=== PATIENT | female | born 1990 | race Caucasian/White ===

== ENCOUNTER 2016-07-21 20:33 | Emergency (ER) | payer SELFPAY ==
[~2016-07-21] VITALS: Ht 162.6 cm; Wt 84.7 kg
[~2016-07-21 20:33] MED LIST: IBUP-1050 PO
[2016-07-21 20:36] VITALS: TEMP 37.2; Ht 162.6 cm; Wt 84.7 kg
--- NOTE | 2016-07-21 21:18 | DIAGNOSTIC IMAGING REPORT ---
RIGHT KNEE 3 VIEWS CLINICAL HISTORY: R knee pain Right COMPARISON: None. DISCUSSION: The bones and joint spaces appear intact. There is no evidence of fracture, dislocation or bony disease. There is no evidence for soft tissue swelling. IMPRESSION: Negative study. Electronically signed by: William Oliveira M.D. 07/21/2016 9:17 PM Dictated Date/Time: 07/21/2016 9:17 PM
[2016-07-21] MEDS ORDERED: TRAM-10 PO (21:38)
[2016-07-21] MEDS ORDERED: TRAMADOL HCL 50 MG HOME PACK PO ONE (21:45)
[2016-07-21] MEDS ORDERED: KETOROLAC TROMETHAMINE 10 MG TAB PO STA (21:49)
[2016-07-21] MEDS ORDERED: EMPTY 8 DRAM VIAL ONE (21:52)
[2016-07-21] MEDS ORDERED: KETO10TA PO (21:54)
[2016-07-21 22:02] VITALS: BP 146/84; PULSE 97; O2SAT 100
--- NOTE | 2016-07-22 02:50 | EMERGENCY ROOM VISIT NOTE ---
ED Visit Note First contact with patient: 20:44 Chief Complaint: Right knee pain. History of Present Illness: Ms. Smith is a 25-year-old white female who ambulates into the ED complaining of right anterior knee pain. Patient reports she's has no significant injuries or previous surgeries to the right knee. She reports she noted approximately a week ago she was having some mild achiness in the knee and felt it was related to working 2 jobs. Today she reports she bent down and flexed her knee and developed acute onset of severe pain over the anterior aspect of the knee. She currently places her discomfort over the anterior superior tibia. She describes her pain as sharp and achy. She rates her discomfort 8/10. Her pain worsens with palpation, the last few degrees of extension and flexion beyond 30 . She has not identified any alleviating factors related to the pain. She reports she's been using ibuprofen without relief of her discomfort. She denies any associated symptoms including back pain, fevers, chills, sweats, skin eruptions, skin color changes, decreased appetite, nausea, vomiting recent trauma, previous surgeries, left lower extremity weakness/numbness/tingling. Review of Systems: As noted above in history of present illness. 8 body systems were reviewed and found to be negative as noted above. Past Medical History: Herniated cervical disk. Current Medications: Ibuprofen. Home Meds and Scripts Medications Dose Route/Sig Max Daily Dose Days Date Category Toradol (Ketorolac Tromethamine) 10 Mg Tab 10 Mg PO Q6H PRN 07/21/16 Rx Advil (Ibuprofen) 200 Mg Tab 200-600 Mg PO Q4H PRN 04/15/16 Reported Allergies to Medications: Tramadol. Social History: Patient is currently employed; she lives with her boyfriend feels safe in her home environment; she admits to tobacco use and denies alcohol use. Physical Examination: Vital Signs: Date Time Temp Pulse Resp B/P Pulse Ox O2 Delivery O2 Flow Rate FiO2 07/21/16 22:02 97 20 146/84 100 07/21/16 20:36 37.2 126 20 146/84 100 Room Air GENERAL: 25-year-old female in mild to moderate distress due to pain, nontoxic- appearing, afebrile and hemodynamically stable. NEUROLOGICAL: Awake, alert and oriented to person, place and time. Answering questions appropriately and following commands. SKIN: Warm, dry and pink. No soft tissue eruptions or trauma noted. RIGHT LOWER EXTREMITY: No gross bony deformity. No tenderness over the hip, thigh, lower leg, ankle or foot. Moderate tenderness throughout the superior aspect of the tibia. Do not appreciate any bony deformity, crepitus, erythema or edema. There is no tenderness over the patellar tendon. No palpable edema and there is no erythema. There is no warmth to the skin when compared bilaterally. Difficult performing a Jeremiah's or Pratibha's test due to limited range of motion. I did not appreciate any deformity or bony tenderness over the joint lines but once again due to limited range of motion was not able to perform an adequate test to confirm collateral ligament stability. She does have full range of motion in plantar flexion and dorsiflexion of the ankles and flexion and extension of the great toe. No calf tenderness or cords. Throughout the foot the skin was warm and pink and capillary refill is brisk. Distal pulses intact. ED Course: Patient is assessed as noted above. Right Knee X-Rays: Were read by myself and the radiologist showing no acute fractures or dislocations. No joint effusion or soft tissue swelling. Patient was placed in a posterior Ortho-Glass knee splint in slight flexion for position of comfort and was giving nonweightbearing crutches. Patient was educated about tonight's findings and instructed on her treatment plan; she verbalizes understanding and agreement with this plan. Clinical Impression: Right knee pain. Decision-Making: Initially my differential diagnosis I considered fracture, patellar dislocation, joint effusion, patellar tendinitis, bursitis, ligamentous strain and other causes. Disposition: Patient discharged home in stable condition; prior to departure she was reassessed and subjectively reported she was feeling better and rated her discomfort 4/10. Plan: Patient was encouraged to alternate 10 mg of Toradol and 650 mg of acetaminophen every 3 hours as needed for pain. Patient was encouraged use ice over areas of pain for 5 times a day for 30 minutes. Patient was encouraged to use knee splint and nonweightbearing crutches for 3-6 days or until pain free. Patient was signed off of work for 3 days. Patient was encouraged to follow-up with orthopedics if no better in 7-10 days. Patient was encouraged return ED for worsening pain, knee swelling, knee redness , fevers, lower leg weakness/numbness/tingling or any new/concerning symptoms.
[2016-07-22] MEDS ORDERED: HYDR-5688 PO (14:07)
== END 2016-07-21 22:03 | disposition home or self-care (01) ==
LOC: C.EDB 20:35 → C.EDD 22:03
DX: M25.561 Pain in right knee (principal); Z72.0 Tobacco use

== ENCOUNTER 2016-07-22 12:47 | Emergency (ER) | payer SELFPAY ==
[~2016-07-22] VITALS: Ht 162.6 cm; Wt 84.6 kg
[~2016-07-22 12:47] MED LIST changes: +KETO10TA PO
[2016-07-22 12:51] VITALS: TEMP 36.9; Ht 162.6 cm; Wt 84.6 kg
[2016-07-22] MEDS ORDERED: HYDR-5688 PO (14:07)
--- NOTE | 2016-07-22 14:08 | EMERGENCY ROOM VISIT NOTE ---
ED Visit Note First contact with patient: 13:07 CHIEF COMPLAINT: Ongoing right knee pain, was just seen here yesterday HISTORY OF PRESENT ILLNESS: Patient is a 25-year-old white female who returns to the emergency department for evaluation of ongoing anterior right knee pain. She was seen and evaluated here yesterday for the same complaint. She denies any specific injury, but has been increased in the active as she has been working 2 jobs. She apparently knelt down and fell an acute pop in the knee yesterday, prompting her initial ED visit. X-rays were negative. She was placed in an Ortho-Glass splint and given crutches. She was given Toradol which she has been alternating with acetaminophen and she continues to note 8/ 10 knee pain. She has tried to ice the knee as well. She denies any new trauma or falls. She is trying to make a follow-up appointment with orthopedics but she admits that she does not have insurance and this will be difficult. REVIEW OF SYSTEMS: Review of systems as per HPI. All other systems reviewed were negative. At least 6 systems reviewed. PMH: Electronic medical records are reviewed and summarized as above/below. See Problem List. SOCIAL HISTORY: Patient lives at home. Nonsmoker. PHYSICAL EXAM: Vital Signs: Reviewed Nurse's notes. MENTAL STATUS: Alert, oriented, and cooperative. KNEE: Examination of the right knee show mild soft tissue swelling and trace joint effusion. She has tenderness over the anterior medial aspect of the knee. She can extend fully, flexes greater than 90. There is no gross ligamentous instability appreciated. The skin is normal and intact. The patient walks with an antalgic gait. EMERGENCY DEPARTMENT COURSE: Patient's x-rays from yesterday were reviewed. She presents the emergency department for evaluation of knee pain that was not controlled by tramadol and acetaminophen. She also reports that the splint has been uncomfortable and her pain has been constant since it was placed. This was removed and she was placed in a knee immobilizer instead, which she felt more comfortable in. She will continue the crutches. She was given a small prescription for [place] to use for severe pain. Patient was reviewed in the [facility] Prescription Drug Monitoring Program, and there were no red flags noted. Patient was encouraged to follow-up with orthopedics or her PCP for further care and management of her knee pain. Differential diagnosis included bursitis, tendinitis, meniscal or ligamentous injury, among others. Problem List Medical Problems: (1) Headache Status: Resolved (2) Neck pain Status: Resolved (3) Right anterior knee pain Status: Resolved Current/Historical Medications Scheduled PRN Hydrocodone/Acetaminophen 5MG/325MG ([place] 5MG/325MG), 1-2 TABLETS PO Q4 PRN for Pain Ibuprofen (Advil), 200-600 MG PO Q4H PRN for Pain Ketorolac Tromethamine (Toradol), 10 MG PO Q6H PRN for Pain Allergies Coded Allergies: Tramadol (Verified Adverse Reaction, Mild, itching, nausea, 07/22/16) Vital Signs Date Time Temp Pulse Resp B/P Pulse Ox O2 Delivery O2 Flow Rate FiO2 07/22/16 14:12 101 16 136/83 99 07/22/16 12:51 36.9 86 18 149/83 98 Room Air Departure Information Impression Primary Impression: Right knee pain Prescriptions Hydrocodone/Acetaminophen 5MG/325MG ([place] 5MG/325MG) Tab 1-2 TABLETS PO Q4 Y for Pain, #20 TAB For Initial Treatment Prov: Nayely Chiu PA 07/22/16 Referrals No Doctor, Assigned (PCP) Patient Instructions [facility] Additional Instructions Hydrocodone/Acetaminophen ([place]) 5/325 mg: Take 1-2 pills every four hours for breakthrough pain. Avoid alcohol, operating machinery or dangerous equipment, working on ladders or roofs, DRIVING, or situations where being under the influence may be dangerous. It is recommended to use an kcwb-ygc-hhrxdcc stool softener such as Colace, 100mg twice daily while taking this medication to avoid constipation. Ibuprofen(Motrin, Advil) may be used for fever or pain. Use 600mg every six hours as needed. Take with food. Avoid using more than 2400mg in a 24 hour period. Do not use 2400mg per day for more than three consecutive days without physician direction. Prolonged inappropriate use can lead to stomach upset or ulcers. This medication can be taken if you need to drive, work, or perform activities which may be dangerous when taking narcotic pain medication. (AND/OR) Acetaminophen(Tylenol) may be used for fever or pain. Use 1000mg every six hours as needed. Avoid using more than 3000mg in a 24 hour period. This medication can be taken if you need to drive, work, or perform activities which may be dangerous when taking narcotic pain medication. Ice compresses for 20 minutes at a time four times daily for 2-3 days. Use the knee immobilizer and crutches as instructed. Rest and elevate your injury. Continue current medications. Return to the ER immediately for any numbness, tingling, severe pain, extreme swelling in the extremity or as needed. Follow-up with orthopedics for further care and management of your knee pain. Problem Qualifiers Primary Impression: Right knee pain Chronicity: acute Qualified Codes: M25.561 - Pain in right knee
[2016-07-22 14:12] VITALS: BP 136/83; PULSE 101; O2SAT 99
== END 2016-07-22 14:14 | disposition home or self-care (01) ==
LOC: C.EDB 12:51 → C.EDD 14:14
DX: M25.561 Pain in right knee (principal); Z88.6 Allergy status to analgesic agent

== ENCOUNTER 2016-08-18 09:02 | Emergency (ER) | payer SELFPAY ==
[~2016-08-18] VITALS: Ht 162.6 cm; Wt 82.8 kg
[~2016-08-18 09:02] MED LIST changes: +HYDR-5688 PO; -KETO10TA PO
[2016-08-18 09:08] VITALS: TEMP 37.3; Ht 162.6 cm; Wt 82.8 kg
--- NOTE | 2016-08-18 09:41 | EMERGENCY ROOM VISIT NOTE ---
ED Visit Note First contact with patient: 09:29 CHIEF COMPLAINT: Mouth and jaw pain HISTORY OF PRESENT ILLNESS: This 25-year-old female patient presented to the emergency department via private vehicle with a progressive toothache for past 2 or 3 days. The patient believes it is coming from inferior anterior dentition. Patient notes that the pain was between the bottom 2 front teeth and is now radiating into the lower jaw anteriorly. She rates the pain as an 8/ 10. There is associated nausea which she contributes to not eating much secondary to the pain with chewing. She denies any headache, fevers, chills, regular dentist. She is tried Orajel without relief. Denies facial swelling or fever. The patient denies any discharge from the mouth. REVIEW OF SYSTEMS: A 6 system review of systems was completed with positives and pertinent negatives listed in the HPI. ALLERGIES: Tramadol MEDICATIONS: As noted below PMH: Herniated disc in neck SOCIAL HISTORY: Patient lives at home with boyfriend and is currently employed. PHYSICAL EXAM: Vitals are noted on the nurse's note and reviewed by myself. Vital signs stable. Temperature 37.3C orally. GENERAL: 25-year-old female, in no acute distress, nondiaphoretic, well-developed well-nourished. Mouth: The bottom anterior to teeth are very carious and the gum is swollen and tender around it, without any discharge or signs of an abscess. The remainder of the pharynx and tonsils are without erythema, edema, or exudate. The airway is patent. There is no facial swelling, cervical or submandibular lymphadenopathy. The patient appears uncomfortable and in pain. The patient has overall poor dental hygiene. No evidence of Chad angina. The airway is patent. I do not suspect any osteonecrosis of the jaw. EARS: External auditory canals clear, tympanic membranes pearly patton without erythema or effusion bilaterally. ED COURSE: Patient was seen and evaluated as above. After obtaining a thorough history and physical examination and was apparent the patient was experiencing pain secondary to poor dentition with potential early infection of the bottom front teeth. Because of the acute onset I do not suspect any chronic or potential osteonecrosis of the jaw. Patient will be prescribed Augmentin for this. She will also be given a short term supply of OxyIR, of which she notes that she can take despite her tramadol allergy. This was sent to her pharmacy. No red flags were identified within the drug monitoring system. I do not feel that a CT would be warranted at this time nor IV antibiotics, however the CT was offered to the patient and through shared decision making it was decided to start with the oral antibiotics and pain medication and to see how this responded, and she is to return with any worsening of her symptoms. She was given the information for [facility]. She is to call their number to follow-up in the near future for definitive management of her poor dentition. I do believe the patient can follow-up in the outpatient setting, and is stable for discharge. She was educated upon worrisome symptoms which to return, had questions answered prior to discharge and was discharged home in good condition. DIAGNOSIS: Odontalgia Problem List Medical Problems: (1) Headache Status: Resolved (2) Neck pain Status: Resolved (3) Right anterior knee pain Status: Resolved Current/Historical Medications Scheduled Amoxicillin & Pot Clavulanate (Augmentin 875-125 mg), 1 TAB PO BID Scheduled PRN Oxycodone Ir (Roxicodone Ir), 1-2 TAB PO Q4H PRN for Pain Allergies Coded Allergies: Tramadol (Verified Adverse Reaction, Mild, itching, nausea, 08/18/16) Vital Signs Date Time Temp Pulse Resp B/P Pulse Ox O2 Delivery O2 Flow Rate FiO2 08/18/16 09:53 97 16 152/96 97 08/18/16 09:08 37.3 96 18 162/82 96 Room Air Departure Information Impression Primary Impression: Odontalgia Dispostion Home / Self-Care Condition GOOD Prescriptions Amoxicillin & Pot Clavulanate (Augmentin 875-125 mg) 1 Tab Tab 1 TAB PO BID for 10 Days, #20 TAB Prov: Jose Arreola PA-C 08/18/16 Oxycodone Ir (Roxicodone Ir) 5 Mg Tab 1-2 TAB PO Q4H Y for Pain, #15 TAB For Initial Treatment Prov: Jose Arreola PA-C 08/18/16 Referrals No Doctor, Assigned (PCP) Patient Instructions [facility] Additional Instructions You have been treated in the Emergency Department for Dental Pain. You have been prescribed Oxy IR to be used for pain control. This is a narcotic medication. You cannot drive or consume alcohol while on this medicine. This medicine should only be used for pain that cannot be controlled with over-the- counter pain medicines. You were prescribed Augmentin to be taken Twice daily for 10 days. This is an antibiotic. All antibiotics have the potential to cause diarrhea. Stop this medication and contact a medical provider if you were to develop any significant adverse side effects including: wheezing, shortness of breath, passing out, vomiting, or a diffuse rash. Always take antibiotics as directed and COMPLETE the ENTIRE course regardless of the improvement of your symptoms. For pain control, you can use the following iarz-xeh-ydzsote medicines (if >12 yo): - Regular strength (325mg/tab) Tylenol (acetaminophen) 2 tabs every 4-6 hours as needed. Do not exceed 12 tablets in a 24 hour period. Avoid taking more than 4 grams (4000 mg) of Tylenol per day. This includes any other sources of acetaminophen you may take on a regular basis. - Regular strength (200 mg/tab) Advil (ibuprofen) 1-2 tabs every 4-6 hours as needed. Do not exceed a dose of 3200 mg per day. Refrain from smoking cigarettes or using chewing tobacco until you have been evaluated by your dentist. Keeping beverages lukewarm and consuming soft foods can decrease your pain. Warm compresses over the affected area may offer some relief. You MUST seek evaluation of your dental pain by a dentist following your visit to the Emergency Department. The Emergency Department is not capable of treating dental issues long-term. Our director case management have provided with information regarding [place] [facility]. He is recommended that you call the number as soon as you leave here today to schedule follow-up as you 're dentition will likely need to be removed. As we discussed please return for any worsening of your symptoms. Return to the emergency department if you develop the following symptoms despite treatment course outlined above: fever, intractable pain, increased redness, swelling, or purulent discharge. Please return to the emergency department with any new/concerning symptoms from your standpoint.
[2016-08-18] MEDS ORDERED: AMOX875T PO (09:43)
[2016-08-18] MEDS ORDERED: OXYC1TAB3 PO (09:43)
[2016-08-18 09:53] VITALS: BP 152/96; PULSE 97; O2SAT 97
== END 2016-08-18 09:53 | disposition home or self-care (01) ==
LOC: C.EDB 09:04 → C.EDA 09:53
DX: K08.89 Other specified disorders of teeth and supporting structures (principal); Z88.8 Allergy status to other drugs, medicaments and biological substances; M50.20 Other cervical disc displacement, unspecified cervical region

== ENCOUNTER 2016-11-02 11:33 | Emergency (ER) | payer SELFPAY ==
[~2016-11-02] VITALS: Ht 162.6 cm; Wt 84.6 kg
[~2016-11-02 11:33] MED LIST changes: -HYDR-5688 PO; -IBUP-1050 PO; +OXYC1TAB3 PO
[2016-11-02 11:36] VITALS: TEMP 36.8; Ht 162.6 cm; Wt 84.6 kg
[2016-11-02] MEDS ORDERED: IBUP-1050 PO (11:45)
[2016-11-02] MEDS ORDERED: HYDROCODONE/ACETAMOPHEN 5/325MG TAB PO STA (11:59)
[2016-11-02] MEDS ORDERED: PENI-82 PO (12:39)
--- NOTE | 2016-11-02 12:39 | EMERGENCY ROOM VISIT NOTE ---
ED Visit Note First contact with patient: 11:40 CHIEF COMPLAINT: Toothache HISTORY OF PRESENT ILLNESS: This 25-year-old female patient presented to the emergency department with a progressive toothache for past 5 days. The patient believes it is coming from several of her bottom teeth in the front. The pain is now steady and severe and radiates to the bilateral jaw. The patient states she is from [place] and is planning to head back there in the next week, she is established with a dentist there and can easily get an appointment. She has had several of her other teeth extracted in the past due to poor dentition. They rate their pain a 8/10 and the ibuprofen they have been taking has not relieved the pain. She has not taken any Tylenol for her pain. Denies facial swelling, throat or tongue swelling, difficulty swallowing, difficulty breathing or fever/chills. The patient denies any discharge from the mouth. REVIEW OF SYSTEMS: A 6 system review of systems was completed with positives and pertinent negatives listed in the HPI. ALLERGIES: Tramadol MEDICATIONS: See chart PMH: See chart SOCIAL HISTORY: Current every day smoker. Denies alcohol or recreational drugs. PHYSICAL EXAM: Vitals are noted on the nurse's note and reviewed by myself. Vital signs stable. She is afebrile. GENERAL: Pleasant and cooperative, in no acute distress, non-diaphoretic, well-developed well-nourished. Mouth: There is poor dentition throughout the mouth. She has multiple extracted upper front teeth with dental plate. Several lower front teeth are very carious and the gums are swollen and tender around the lower front teeth, without any discharge or signs of an abscess. The remainder of the pharynx and tonsils are without erythema, edema, or exudate. No woody edema of the mouth floor. The airway is patent. There is no facial swelling, cervical or submandibular lymphadenopathy. The patient appears uncomfortable and in pain. The patient has overall poor dental hygiene. EARS: External auditory canals clear, tympanic membranes pearly patton without erythema or effusion bilaterally. ED COURSE: I examined the patient. Differential diagnosis includes dental caries, gingivitis, dental abscess, facial abscess; I do not suspect Chad's angina. Patient has very poor dentition with several carious teeth. She appears to have acute gingivitis around her lower front teeth, no drainage or palpable abscess. She was given one [place] in the ER for pain control, Rx for penicillin sent to the pharmacy and she was strongly encouraged to follow closely with her dentist when she gets home. She verbalized understanding and is agreeable to plan. She was discharged in stable condition. Problem List Medical Problems: (1) Headache Status: Resolved (2) Neck pain Status: Resolved (3) Right anterior knee pain Status: Resolved Current/Historical Medications Scheduled Ibuprofen (Advil), 200-600 MG PO Q4H Penicillin V Potassium (Veetids), 500 MG PO TID Allergies Coded Allergies: Tramadol (Verified Adverse Reaction, Mild, itching, nausea, 11/02/16) Vital Signs Date Time Temp Pulse Resp B/P Pulse Ox O2 Delivery O2 Flow Rate FiO2 11/02/16 12:44 69 18 141/89 98 11/02/16 11:36 36.8 99 16 150/83 99 Room Air Medications Administered Medications (Trade) Dose Ordered Sig/Shane Route Start Time Stop Time Status Last Admin Dose Admin Acetaminophen/ Hydrocodone Bitart ([place] 5/325 Tab) 1 tab NOW STAT PO 11/02/16 11:59 11/02/16 12:00 DC 11/02/16 12:05 1 TAB Departure Information Impression Primary Impression: Gingivitis Additional Impressions: Dental caries Poor dentition Dispostion Home / Self-Care Condition GOOD Prescriptions Penicillin V Potassium (Veetids) 500 Mg Tab 500 MG PO TID for 10 Days, #30 TAB Prov: Sofie Morales, BUSHEL GIRL 11/02/16 Referrals No Doctor, Assigned (PCP) Patient Instructions Decay Tooth, Gingivitis, [facility], Penicillin V Potassium Oral tablet Additional Instructions You may take ibuprofen and Tylenol to treat your dental pain. Alternate between these two medications every 4 hours as described below. Ibuprofen 800 mg every 8 hours, alternating every 4 hours with Tylenol 1000 mg every 8 hours. You may also try ice or heat to the area to help with pain and swelling. Penicillin 500 mg t.i.d. x 10 days for infection. See your dentist as soon as possible for definitive care. Return sooner if shortness of breath, mouth or facial swelling, difficulty swallowing or breathing, pus discharge in the mouth, or change in vision and hearing occur. Problem Qualifiers
[2016-11-02 12:44] VITALS: BP 141/89; PULSE 69; O2SAT 98
== END 2016-11-02 12:45 | disposition home or self-care (01) ==
LOC: C.EDB 11:34 → C.EDD 12:45
DX: K05.10 Chronic gingivitis, plaque induced (principal); K02.9 Dental caries, unspecified; F17.200 Nicotine dependence, unspecified, uncomplicated; Z88.8 Allergy status to other drugs, medicaments and biological substances

== ENCOUNTER → 2017-08-02 | Outpatient (CLI) | payer OTHER ==
[~2017-08-02] MED LIST changes: +IBUP-1050 PO; -OXYC1TAB3 PO
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
== END | disposition home or self-care (01) ==
LOC: C.RADPV 08:40
PROVIDERS: ATTEND Family Medicine
DX: M50.93 Cervical disc disorder, unspecified, cervicothoracic region (principal)

== ENCOUNTER 2017-09-03 11:30 | Emergency (ER) | payer OTHER ==
[~2017-09-03] VITALS: Ht 165.1 cm; Wt 88.9 kg
[~2017-09-03 11:30] MED LIST changes: +CYCL5TAB PO; +MELO7.5T5 PO
[2017-09-03 11:35] VITALS: TEMP 36.9; Ht 165.1 cm; Wt 88.9 kg
[2017-09-03] MEDS ORDERED: LIDODERM (LIDOCAINE) PATCH 5% TD STA (12:08)
[2017-09-03] MEDS ORDERED: DICL50TA3 PO (12:17)
[2017-09-03] MEDS ORDERED: LIDO1PAD2 TD (12:17)
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
[2017-09-03 12:30] VITALS: BP 140/79; PULSE 68; O2SAT 99
[2017-09-03] MEDS ORDERED: PRLSR20 PO (12:32)
[2017-09-03] MEDS ORDERED: CETI10TA84 PO (12:32)
== END 2017-09-03 12:28 | disposition home or self-care (01) ==
LOC: C.EDB 11:31 → C.EDD 12:28
DX: M50.10 Cervical disc disorder with radiculopathy, unspecified cervical region (principal); G89.29 Other chronic pain; F17.200 Nicotine dependence, unspecified, uncomplicated